=== PATIENT | female | born 1975 | race Caucasian/White ===

== ENCOUNTER 2017-04-16 13:08 | Emergency (ER) | payer OTHER ==
[2017-04-16 14:28] LABS: BLOOD UREA NITROGEN 20 mg/dL (7-17); CALCIUM 10.1 mg/dL (8.4-10.2); CHLORIDE 103 mmol/L (98-107); EST GLOMERULAR FILTRATION RATE > 60 mL/min; GLUCOSE 158 mg/dL (70-100); POTASSIUM 3.1 mmol/L (3.5-5.1); SODIUM 139 mmol/L (137-145)
[2017-04-16 14:29] LABS: BASOPHIL# 0.4 X 10^3uL (0.0-0.1); BASOPHILS 4.4 % (0.0-2.0); EOSINOPHILS 0.8 % (0.0-6.0); EOSINOPHILS# 0.1 X 10^3uL (0.0-0.4); HEMATOCRIT 41.1 % (36.0-48.0); HEMOGLOBIN 14.4 g/dL (12.0-16.0); LYMPHOCYTES 26.4 % (20.0-40.0); LYMPHOCYTES# 2.3 X 10^3uL (0.8-3.8); MEAN CELL VOLUME 89.8 fL (80.0-100.0); MEAN CORPUS. HGB CONCENTRATION 35.1 g/dL (32.0-36.0); MEAN CORPUSCULAR HEMOGLOBIN 31.5 pg (29.0-35.0); MEAN PLATELET VOLUME 8.4 fL (7.4-10.4); MONOCYTES 6.1 % (2.0-10.0); MONOCYTES# 0.5 X 10^3uL (0.2-1.0); NEUTROPHILS 62.3 % (54.0-75.0); NEUTROPHILS# 5.4 X 10^3uL (2.6-6.7); PLATELET COUNT 157 X 10^3uL (130-440); RED BLOOD COUNT 4.58 X 10^6uL (4.20-6.10); RED CELL DISTRIBUTION WIDTH 12.1 % (11.5-14.5); WHITE BLOOD COUNT 8.8 X 10^3uL (3.9-10.7)
[2017-04-16 14:38] LABS: C-REACTIVE PROTEIN < 5.0 mg/L (<10.0); TROPONIN I < 0.012 ng/mL (0.00-0.034)
--- NOTE | 2017-04-16 14:49 | RADIOLOGY REPORT ---
A limited single portable view of the chest demonstrates the heart, vessels and lungs to be unremarkable. IMPRESSION: Unremarkable limited single portable view of the chest. MTDD
--- NOTE | 2017-04-16 15:53 | MRI REPORT ---
HISTORY: Left-sided weakness. COMPARISON: None. TECHNIQUE: Multiplanar multi sequential imaging of the cervical spine obtained before and following the intrave nous administration of intravenous gadolinium. 15cc Magnevist contrast. FINDINGS: Visualized portions of the posterior cranial fossa appear unremarkable. There is no evidence of cereb ellar tonsillar ectopia. Cervical cord demonstrates no syrinx or cord edema. There is no contrast-enh ancing mass bone marrow signal is maintained. Anterior posterior longitudinal ligaments are intact. T here is no paravertebral soft tissue swelling.. There is no pathologic epidural fluid collection or e nhancement. Axial images demonstrate the following: C2-C3: No spinal stenosis or foraminal impingement. C3-C4: No spinal stenosis or foraminal impingement. C4-C5: No spinal stenosis or foraminal impingement. C5-C6: There is decreased disc height and hydration. There is a broad-based, subligamentous 3 mm righ t paracentral disc bulge and posterior osteophyte. As produces mild to moderate narrowing of the righ t lateral recess and neural foramina. Central canal is adequately maintained. The left lateral recess is maintained. C6-C7: No spinal stenosis or foraminal impingement. C7-T1: No spinal stenosis or foraminal impingement. IMPRESSION: 1. There is a 3 mm right paracentral disc bulge with posterior osteophyte formation at C5-C6 which produces mild to moderate narrowing of the right lateral recess and right neural foramina. No spinal stenosis. Results were communicated to BARI FRANCOIS MD at 04/16/2017 3:50 PM. Final Electronic Signature: This report was electronically signed by Micah Stovall MD on 04/16/2017 3:5 1 PM. [facility] /
--- NOTE | 2017-04-16 16:03 | MRI REPORT ---
HISTORY: Left-sided weakness. Dizziness. Spinal cord ischemia. COMPARISON: None. TECHNIQUE: Multiplanar multi sequential imaging of the brain obtained without and with IV gadolinium. 15 cc Magn evist FINDINGS: BRAIN: The midline structures are normal. No atrophy. The brain parenchyma is normal in signal intens ity. There is an ill-defined region of high diffusion signal with probable ADC signal in the right ce ntrum semiovale. No hemorrhage. No hydrocephalus. No mass effect or midline shift. The major intracra nial flow-voids are patent. BONES AND EXTRACRANIAL SOFT TISSUES: The orbits are unremarkable. The paranasal sinuses and mastoid a ir cells are clear. No gross bone lesion is identified. IMPRESSION: 1. Findings suspicious for recent infarction in the right centrum semiovale. Imaging characteristics suggest age. At least 6 hours less than 7 days. 2. No associated hemorrhage. Findings called at 4:00 PM. Gardenia Roberto MD Neuroradiologist Final Electronic Signature: This report was electronically signed by Rhett Roberto MD on 04/16/2017 4:00 PM. leny /
--- NOTE | 2017-04-16 16:52 | ER NURSING DOCUMENTATION ---
Nurse's Notes [facility] Name:Venessa Barnhart Age:41 yrs Sex:Female :1975 Arrival Date:04/16/2017 Time:13:08 BedTrauma-A Private MD:Emily Garcia Diagnosis:CVA (Stroke) Thrombotic, with Cerebral Infarction Presentation: 04/16 13:10 Acuity: LELAND 2 rh 13:16 Presenting complaint: Patient states: weakness and heaviness on her left arm and leg. sc1 Stated she woke up with discomfort across her post shoulder area and the left sided weakness. Went to the chiropractor and felt "better" but the left sided weakness has returned. Transition of care: Home. Time Last Known Well for patient was this morning. 13:16 Method Of Arrival: Private Vehicle sc1 13:20 No acute neurological deficit is noted. Triage Assessment: 13:41 The onset of the patients symptoms was more than six hours ago. General: Appears in no rh apparent distress, Behavior is cooperative. Pain: Denies pain. EENT: Oral mucosa is dry. Neuro: Level of Consciousness is awake, alert, obeys commands, Oriented to person, place, time, event, Small Brake Form Operator are weak on left Moves all extremities. Gait is steady, Speech is normal, Facial symmetry appears normal, Pupils are PERRLA, Reports weakness in left arm. Cardiovascular: Capillary refill < 3 seconds Chest pain is denied. Respiratory: Airway is patent Respiratory effort is even, unlabored, Respiratory pattern is regular, symmetrical. GI: Denies nausea. : No deficits noted. Derm: Skin is intact, is healthy with good turgor, Skin is pink, warm & dry. Musculoskeletal: Circulation, motion, and sensation intact Range of motion intact in all extremities. Historical: - Allergies: Codeine; - Home Meds: 1. None - PMHx: PITUITARY ADENOMA ; - PSHx: None; - Tetanus: < 10 years. - Ebola Screening: : Patient negative for fever greater than or equal to 101.5 degrees Fahrenheit, and additional compatible Ebola Virus Disease symptoms. - Family history: Maternal Grandmother has/had cerebrovascular accident, Paternal Grandfather has/had cerebrovascular accident. - Immunization history: Flu Vaccine < 1 year. - Social history: Smoking status: Patient states was never smoker of tobacco. Screenin:43 Infectious Disease Risk None. Abuse screen: Denies threats or abuse. Denies injuries rh from another. Nutritional screening: No deficits noted. Assessment: 13:43 See Triage Assessment done by same RN. rh Vital Signs: 13:20 BP 140 / 96; Pulse 87; Resp 18; Temp 98.6(O); Pulse Ox 96% on R/A; Weight 58.97 kg; rh Height 5 ft. 5 in. (165.10 cm); Pain 0/10; 15:50 BP 170 / 72; Pulse 66; Resp 18; Pulse Ox 96% on R/A; rh 16:50 BP 128 / 82; Pulse 65; Resp 16; Pulse Ox 97% on R/A; Pain 0/10; rh 13:20 Body Mass Index 21.63 (58.97 kg, 165.10 cm) rh NIH Stroke Scale Scores: 13:10 NIHSS Score: 0 rh 16:29 NIHSS Score: 0 rh ED Course: 13:10 Patient arrived in ED. ama 13:10 Emily Garcia MD is Private Physician. ama 13:10 Triage completed. rh 13:15 campus monitor on. Pulse ox on. NIBP on. Verbal reassurance given. Warm blanket given. rh Pillow given. 13:16 Desiree Nixon, RN is Primary Nurse. sc1 13:18 Neal Liriano MD is Attending Physician. be 13:18 Missed attempts: 20 gauge X 1 in left antecubital area, Bleeding controlled, band aid rh applied, catheter tip intact. 13:20 Notified ED Physician of patient's arrival and chief complaint. Dr. Liriano. rh 13:27 EKG done. (by ED staff). Reviewed by Neal Liriano MD. rh 13:43 Valuables Remains with patient Patient has correct armband on for positive rh identification. Placed in gown. Bed in low position. Call light in reach. Side rails up X 1. 14:05 Port Xray Completed. ms 14:26 Patient moved to MRI. ms 16:23 EKG attached sc1 Administered Medications: 14:05 Drug: NS 0.9% 1000 ml; Route: IV; Rate: bolus; Site: right antecubital; rh 15:00 Follow up: IV Status: Completed infusion; IV Intake: 1000ml rh 16:28 Drug: Aspirin 81 mg, 4 tabs, total of 324 mg - Aspirin 81 mg; Route: PO; rh 16:46 Follow up: Response: No adverse reaction rh 16:46 Drug: Zofran 8 mg; Route: IVP; Infused Over: 2 mins; Site: right antecubital; rh 16:48 Follow up: Response: No adverse reaction rh Point of Care Testing: Blood Glucose: 13:20 Blood Glucose: 87 mg/dL; rh Ranges: Intake: 15:00 IV: 1000ml; Total: 1000ml. rh Outcome: 16:29 ER care complete, transfer ordered by . be 16:48 Transferred: Patient will be transferred to: [facility]. Facility rh Acceptance Time: April 16, 2017 at 16:00 Patient's face sheet was faxed to accepting facility. Face Sheet included patient's name, address, age, gender, contact information and insurance information. Patient will be transported by: [facility] ground. Report called to: [facility] ICU CHARGE NURSE Nurse and Physician Charting and Notes were sent to Accepting Facility. All tests and/or procedures with results, if applicable, were sent to accepting facility. 16:48 Condition: stable 16:48 Instructed on need for transfer 16:51 Patient left the ED. rh NIH Stroke Scale - NIH Stroke Score Date: 04/16/2017 Time: 13:10 Total Score = 0 1a. Level of Consciousness (LOC) - 0(Alert) 1b. Level of Consciousness (LOC) (Year & Age) - 0(Both) 1c. LOC Commands (Open & Closes Eyes/Floor Associate) - 0(Both) 2. Best Gaze (Lateral Gaze Paresis) - 0(Normal) 3. Visual Field Loss - 0(No visual loss) 4. Facial Palsy - 0(Normal) 5a. Left Arm: Motor (10-second hold) - 0(No drift) 5b. Right Arm: Motor (10-second hold) - 0(No drift) 6a. Left Leg: Motor (5-second hold ? always test supine) - 0(No drift) 6b. Right Leg: Motor (5-second hold ? always test supine) - 0(No drift) 7. Limb Ataxia (finger/nose & heel/weller ? test with eyes open) - 0(Absent) 8. Sensory Loss (pinprick arms/legs/face) - 0(Normal) 9. Best Language: Aphasia (description/naming/reading) - 0(No aphasia) 10. Dysarthria (speech clarity ? read or repeat words) - 0(Normal) 11. Extinction and Inattention (visual/tactile/auditory/spatial/personal) - 0(No abnormality) Initials: NIH Stroke Scale - NIH Stroke Score Date: 04/16/2017 Time: 16:29 Total Score = 0 1a. Level of Consciousness (LOC) - 0(Alert) 1b. Level of Consciousness (LOC) (Year & Age) - 0(Both) 1c. LOC Commands (Open & Closes Eyes/Floor Associate) - 0(Both) 2. Best Gaze (Lateral Gaze Paresis) - 0(Normal) 3. Visual Field Loss - 0(No visual loss) 4. Facial Palsy - 0(Normal) 5a. Left Arm: Motor (10-second hold) - 0(No drift) 5b. Right Arm: Motor (10-second hold) - 0(No drift) 6a. Left Leg: Motor (5-second hold ? always test supine) - 0(No drift) 6b. Right Leg: Motor (5-second hold ? always test supine) - 0(No drift) 7. Limb Ataxia (finger/nose & heel/weller ? test with eyes open) - 0(Absent) 8. Sensory Loss (pinprick arms/legs/face) - 0(Normal) 9. Best Language: Aphasia (description/naming/reading) - 0(No aphasia) 10. Dysarthria (speech clarity ? read or repeat words) - 0(Normal) 11. Extinction and Inattention (visual/tactile/auditory/spatial/personal) - 0(No abnormality) Initials: Signatures: Desiree Nixon, RN RN sc1 Neal Liriano MD MD be Strickland, Mary ms Jerome Valente, Johana Hernandez
--- NOTE | 2017-04-16 16:52 | ER PHYSICIAN DOCUMENTATION ---
Physician Documentation [facility] Name:Venessa Barnhart Age:41 yrs Sex:Female :1975 Arrival Date:04/16/2017 Time:13:08 BedTrauma-A Private MD:Emily Garcia ED, Brian Disposition: 04/16/17 16:29 Transfer ordered to [facility]. Diagnosis is CVA (Stroke) Thrombotic, with Cerebral Infarction. - Reason for transfer: Specialty. - Accepting physician is Dr. Sanders, [facility]. - Condition is Serious. - Problem is new. - Symptoms have improved. COBRA Form completed? Yes Transfer - Mode of Transportation Ambulance HPI: 04/16 16:19 This 41 yrs old Female presents to ER via Private Vehicle with complaints of be Weakness - LEFT SIDED. 16:19 The patient presents to the emergency department with weakness of the left upper be extremity, that is mild, left lower extremity, that is mild. Onset: The symptom(s)/episode began/occurred today, 06:30. Context: occurred while the patient was at rest. Associated signs and symptoms: Pertinent positives: weakness. Severity of symptoms: At their worst the symptoms were mild. Current symptoms: Currently, the patient is not experiencing any symptoms, the patient feels back to baseline. This patient does not have any risk factors related to a stroke or transient ischemic attack. Historical: - Allergies: Codeine; - Home Meds: 1. None - PMHx: PITUITARY ADENOMA ; - PSHx: None; - Tetanus: < 10 years. - Ebola Screening: : Patient negative for fever greater than or equal to 101.5 degrees Fahrenheit, and additional compatible Ebola Virus Disease symptoms. - Family history: Maternal Grandmother has/had cerebrovascular accident, Paternal Grandfather has/had cerebrovascular accident. - Immunization history: Flu Vaccine < 1 year. - Social history: Smoking status: Patient states was never smoker of tobacco. ROS: 16:22 Neck: Positive for pain at rest. be 16:22 Neuro: Positive for weakness, of the left arm and left leg. 16:22 All other systems are negative. Exam: 16:22 Constitutional: This is a well developed, well nourished patient who is awake, alert, be and in no acute distress. Head/Face: Normocephalic, atraumatic. Neck: Trachea midline, no thyromegaly or masses palpated, and no cervical lymphadenopathy. Supple, full range of motion without nuchal rigidity, or vertebral point tenderness. No Meningismus. Chest/axilla: Normal chest wall appearance and motion. Nontender with no deformity. No lesions are appreciated. Respiratory: Lungs have equal breath sounds bilaterally, clear to auscultation and percussion. No rales, rhonchi or wheezes noted. No increased work of breathing, no retractions or nasal flaring. Abdomen/GI: Soft, non-tender, with normal bowel sounds. No distension or tympany. No guarding or rebound. No evidence of tenderness throughout. Back: No spinal tenderness. No costovertebral tenderness. Full range of motion. 16:22 Skin: Warm, dry with normal turgor. Normal color with no rashes, no lesions, and no be evidence of cellulitis. Multiple tatoos noted 16:22 Eyes: Pupils: equal, round, and reactive to light and accomodation. 16:22 Cardiovascular: Rate: normal, Rhythm: regular. 16:22 Neuro: Motor: no acute changes, Sensation: no acute changes, Gait: not tested. NIH stroke scale 0 on arrival. Vital Signs: 13:20 BP 140 / 96; Pulse 87; Resp 18; Temp 98.6(O); Pulse Ox 96% on R/A; Weight 58.97 kg; rh Height 5 ft. 5 in. (165.10 cm); Pain 0/10; 15:50 BP 170 / 72; Pulse 66; Resp 18; Pulse Ox 96% on R/A; rh 16:50 BP 128 / 82; Pulse 65; Resp 16; Pulse Ox 97% on R/A; Pain 0/10; rh 13:20 Body Mass Index 21.63 (58.97 kg, 165.10 cm) rh NIH Stroke Scale Scores: 13:10 NIHSS Score: 0 rh 16:29 NIHSS Score: 0 rh MDM: 13:18 Patient medically screened. be 13:45 ECG:. be 16:23 EKG attached sc1 16:25 The patient was last known to be well at April 16, 2017 at 06:30. Thrombolytics: No be thrombolytic given over 6 hours. Data reviewed: vital signs, nurses notes, lab test result(s), EKG, radiologic studies, MRI. Special discussion: Based on the history and exam findings, there is no indication for further emergent testing or inpatient evaluation. I discussed with the patient/guardian the need to see the neurologist for further evaluation of the symptoms. 16:26 Data reviewed: and as a result, I will *Transfer Patient ASA 324 mg chewed. Special be discussion: Based on the history and exam findings, there is no indication for further emergent testing or inpatient evaluation. Discussed with Dr. Sanders, Neurologist at [facility]. Agrees to accept transfer, ASA 324 mg chewed given.. 04/16 14:23 Order name: LACTATE; Complete Time: 07:22 EDMS 04/17 07:21 Interpretation: Normal. be 04/16 14:31 Order name: DDIMER; Complete Time: 07:22 EDMS 04/17 07:21 Interpretation: Abnormal. be 04/16 14:32 Order name: CBC AUTO DIF, MDIF/RMOR IF IND; Complete Time: 07:22 EDMS 04/17 07:21 Interpretation: Normal. be 04/16 14:39 Order name: BASIC METABOLIC PANEL; Complete Time: 07:22 EDMS 04/17 07:22 Interpretation: hypokalemia. be 04/16 14:39 Order name: MAGNESIUM; Complete Time: 07:22 EDMS 04/17 07:22 Interpretation: Normal. be 04/16 14:39 Order name: C-REACTIVE PROTEIN; Complete Time: 07:22 EDMS 04/17 07:22 Interpretation: Normal. be 04/16 14:39 Order name: TROPONIN I; Complete Time: 07:22 EDMS 04/17 07:22 Interpretation: Normal. be 04/16 15:11 Order name: CHEST; SINGLE VIEW [id number]; Complete Time: 07:22 EDMS 04/16 15:56 Order name: CERVICAL SPINE W/WO [id number]; Complete Time: 07:22 EDMS 04/16 16:05 Order name: BRAIN W/WO CONTRAST [id number]; Complete Time: 07:22 EDMS 04/16 13:26 Order name: 12-lead EKG; Complete Time: 13:33 be 04/16 13:26 Order name: Iv Saline Lock; Complete Time: 14:04 be 04/16 13:26 Order name: Place Patient On Monitor; Complete Time: 13:33 be 04/16 13:26 Order name: Pulse Ox Continuous; Complete Time: 13:33 be 04/16 13:26 Order name: Oxygen; Complete Time: :33 be EC:45 Rate is 88 beats/min. Rhythm is regular, Sinus arrythmia with No ectopy. QRS [place] is be Normal. ND interval is normal. QRS interval is normal. QT interval is normal. No Q waves. T waves are Normal. No ST changes noted. Clinical impression: Normal ECG. Interpreted by me. Dispensed Medications: 14:05 Drug: NS 0.9% 1000 ml; Route: IV; Rate: bolus; Site: right antecubital; rh 15:00 Follow up: IV Status: Completed infusion; IV Intake: 1000ml rh 16:28 Drug: Aspirin 81 mg, 4 tabs, total of 324 mg - Aspirin 81 mg; Route: PO; rh 16:46 Follow up: Response: No adverse reaction rh 16:46 Drug: Zofran 8 mg; Route: IVP; Infused Over: 2 mins; Site: right antecubital; rh 16:48 Follow up: Response: No adverse reaction Point of Care Testing: Blood Glucose: 13:20 Blood Glucose: 87 mg/dL; rh Ranges: Critical Glucose Levels:Adult <50 mg/dl or >400 mg/dl <40 mg/dl or >180 mg/dl NIH Stroke Scale - NIH Stroke Score Date: 04/16/2017 Time: 13:10 Total Score = 0 1a. Level of Consciousness (LOC) - 0(Alert) 1b. Level of Consciousness (LOC) (Year & Age) - 0(Both) 1c. LOC Commands (Open & Closes Eyes/[employer]) - 0(Both) 2. Best Gaze (Lateral Gaze Paresis) - 0(Normal) 3. Visual Field Loss - 0(No visual loss) 4. Facial Palsy - 0(Normal) 5a. Left Arm: Motor (10-second hold) - 0(No drift) 5b. Right Arm: Motor (10-second hold) - 0(No drift) 6a. Left Leg: Motor (5-second hold ? always test supine) - 0(No drift) 6b. Right Leg: Motor (5-second hold ? always test supine) - 0(No drift) 7. Limb Ataxia (finger/nose & heel/weller ? test with eyes open) - 0(Absent) 8. Sensory Loss (pinprick arms/legs/face) - 0(Normal) 9. Best Language: Aphasia (description/naming/reading) - 0(No aphasia) 10. Dysarthria (speech clarity ? read or repeat words) - 0(Normal) 11. Extinction and Inattention (visual/tactile/auditory/spatial/personal) - 0(No abnormality) Initials: NIH Stroke Scale - NIH Stroke Score Date: 04/16/2017 Time: 16:29 Total Score = 0 1a. Level of Consciousness (LOC) - 0(Alert) 1b. Level of Consciousness (LOC) (Year & Age) - 0(Both) 1c. LOC Commands (Open & Closes Eyes/[employer]) - 0(Both) 2. Best Gaze (Lateral Gaze Paresis) - 0(Normal) 3. Visual Field Loss - 0(No visual loss) 4. Facial Palsy - 0(Normal) 5a. Left Arm: Motor (10-second hold) - 0(No drift) 5b. Right Arm: Motor (10-second hold) - 0(No drift) 6a. Left Leg: Motor (5-second hold ? always test supine) - 0(No drift) 6b. Right Leg: Motor (5-second hold ? always test supine) - 0(No drift) 7. Limb Ataxia (finger/nose & heel/weller ? test with eyes open) - 0(Absent) 8. Sensory Loss (pinprick arms/legs/face) - 0(Normal) 9. Best Language: Aphasia (description/naming/reading) - 0(No aphasia) 10. Dysarthria (speech clarity ? read or repeat words) - 0(Normal) 11. Extinction and Inattention (visual/tactile/auditory/spatial/personal) - 0(No abnormality) Initials: Signatures: Desiree Nixon, RN RN sc1 Neal Liriano MD MD be Hofsess, Rachel
[2017-04-16] MEDS ORDERED: ONDANSETRON HCL 4 MG/2 ML VIAL ONE (17:00)
== END 2017-04-16 16:52 | disposition short-term general hospital (02) ==
LOC: ER 13:08
DX: I63.30 Cerebral infarction due to thrombosis of unspecified cerebral artery (principal); R29.700 NIHSS score 0; R79.1 Abnormal coagulation profile; E87.6 Hypokalemia; Z82.3 Family history of stroke; E86.0 Dehydration; Z74.3 Need for continuous supervision
CPT/HCPCS: 70553; 71010; 72156; 80048; 83605; 83735; 84484; 85025; 85379; 86140; 93005; 96361; 96374; 99285; A0425; A0427; J2405

== ENCOUNTER 2017-05-01 09:01 | Day surgery (SDC) | payer OTHER ==
[2017-05-01] MEDS ORDERED: LIDOCAINE HCL 2% 20 ML VIAL ONE (09:50)
[2017-05-01] MEDS ORDERED: FENTANYL 100 MCG/2 ML VIAL ONE (09:51)
--- NOTE | 2017-05-08 13:17 | HISTORY & PHYSICAL ---
History of Present Illness (Emily Garcia MD; 04/23/2017 12:56 PM) The patient is a 41 year old female who presents to the practice today for a transition into care. The patient is transitioning into care from a hospital. Patient was admitted with TIA symptoms of left sided weakness, both upper and lower extremeties, and found to have a patent foramen ovale, fenestrated, noted on bubble study transthoracic echo. She was taking oral contraceptives for regulation of her abnormal menstrual cycle, which have been discontinued. She is still feeling slightly weak on the left side, and there was a re-read of an MRI of April 16, which showed a very faint hyperintense area in the right frontoparietal region which was very small, and there is thus a diagnosis of embolic stroke. She is taking an 81mg aspirin, and hypercoagulation laboratory studies are still pending. Patient has overall resumed her normal activities, which include a fairly vigorous exercise program. During her admission to [facility], MRA and MR venography of the brain were undertaken, as well as CTA of the carotids and vertebral arteries, all normally. Additionally, the patient had negative venous dopplers of the lower extremities, and a negative CT venography of the pelvic veins. No potential source of emboli was found. The patient has no known history of arrhythmia of any kind. Other events during her admission included one episode of severe hypotension, with a systolic blood pressure in the 70s, attributed to dehydration, which resolved with IVF resuscitation. Allergies (Brianda Rodriguez RN; 04/23/2017 9:48 AM) Dust Codeine Sulfate *ANALGESICS - OPIOID* Nausea. Animal Dander Family History (Brianda Rodriguez RN; 04/23/2017 9:48 AM) Father 65, lives in [place]. History of heroin abuse, now clean, CAD with [place] x [address] Does not care for his health. Mother Diabetes mellitus, Type I. Diabetes mellitus, Type I age 18, from Drug Overdose in her 40s. Social History (Brianda Rodriguez RN; 04/23/2017 10:02 AM) Alcohol Use Drinks Socially. two/week No Drug Use No marijuana Tobacco use Remotely quit tobacco use. smoke 16-26 ( 10pack years) Medication History (Emily Garcia MD; 04/23/2017 10:10 AM) Juice Plus Fibre (6 capsules Oral daily) Active. Cabergoline (0.5MG Tablet, 2 (two) Oral two times weekly, Taken starting 2016) Active. (Four times a week.) Aspirin EC (81MG Tablet DR, 1 Oral daily) Active. Medications Reconciled Review of Systems (Emily Garcia MD; 04/23/2017 12:58 PM) General Present- Fatigue. Neurological Present- Weakness In Extremities (mild). Not Present- Headaches. Vitals (Yari Oviedo; 04/23/2017 9:59 AM) 04/23/2017 9:57 AM Weight: 132.1 lb Height: 65in Body Surface Area: 1.66 m Body Mass Index: 21.98 kg/m Temp.: 98.5F(Temporal) Pulse: 80 (Regular) Resp.: 16 (Unlabored) P.OX: 92% (Room air) BP: 109/80 (Sitting, Left Arm, Standard) Physical Exam (Emily Garcia MD; 04/23/2017 1:00 PM) General Mental Status-Alert. General Appearance-Cooperative, Not in acute distress. Build & Nutrition-Well nourished and Well developed. Head and Neck Head-normocephalic, atraumatic with no lesions or palpable masses. Neck Global Assessment - full range of motion. Carotid Arteries - Bilateral - No Carotid Bruits. Trachea-midline. Thyroid Gland Characteristics - smooth, normal size and consistency and no palpable nodules. Chest and Lung Exam - Did not examine. Cardiovascular Inspection Jugular vein - Bilateral - No Distention. Palpation/Percussion Point of Maximal Impulse - Location - 2nd Left Intercostal Space Midclavicular Line. Auscultation Rhythm - Regular. Heart Sounds - S1 WNL and S2 WNL. Murmurs & Other Heart Sounds - Auscultation of the heart reveals - No Pericardial Friction Rubs. Murmur 1 - Location - Pulmonic Area. Timing - Late systolic. Grade - I/. Murmurs & Other Heart Sounds - Late Systolic Click - Pulmonic Area. Peripheral Vascular Upper Extremity Inspection - Bilateral - Not Acrocyanotic. Palpation - Temperature - Bilateral - Cool. Lower Extremity Palpation - Dorsalis pedis pulse - Bilateral - 2+. Tibialis posterior pulse - Bilateral - 2+. Edema - Bilateral - No edema. Neurologic Neurologic evaluation reveals -CN 2-12 intact. Mental Status Thought content/perception - Normal. Cognitive function - Normal. Cranial Nerves Eye Movements - Gaze - Bilateral - Normal. Nystagmus - Bilateral - None. Sensory-Normal. Motor Tone - Normal. Strength - 5/5 normal muscle strength - All Muscles. Reflexes (Dermatomes) 2/2 Normal - Left Achilles (L5-S2), Left Knee (L2-4), Left Tricep (C7-8), Left Brachioradialis (C5-6), Right Achilles (L5-S2), Right Knee (L2-4), Right Tricep (C7-8) and Right Brachioradialis (C5-6). Plantar Reflexes (L4-S2) - Bilateral-Flexion. Coordination-Normal. Gait-Normal. Assessment & Plan (Emily Garcia MD; 04/23/2017 1:27 PM) Patent foramen ovale with right to left shunt (Q21.1) Impression: Patient is to have a M[facility] for further assessment on May 01; we discussed the literature regarding the subject of intervention. It is my opinion that the patient should consider percutaneous repair, given her young age and the actual small stroke that was experienced. She should continue her aspirin as directed, and I asked her to avoid upper body maneuvers that raise intrathoracic pressure, such as using weights above shoulder level, explaining that she risks increasing the intracardiac shunting. Stroke, acute, embolic (I63.9) Impression: There is a risk that the patient may have a hypercoaguable state; she has a history of early miscarriage, for example, and infertility problems. However, previous testing for antiphospholipid syndrome in 2014 was negative. Her situation is further complicated by her history of pituitary microadenoma with hyperprolactinemia. Her use of oral contraception was to assist in regulation of her menstrual cycle; she also remarks it helped her cystic acne. She plans to meet with her Unemployment Specialist to discuss her options further. We will await the outcome of recent testing at [facility]. Health education/counseling (Z71.89) Current Plans Pt Education - Physician Instructions:: discussed with patient and provided information. Medication review and counseling (Z71.89) Current Plans HOME MEDICATION RECONCILIATION BY REGISTERED NURSE ([id number]) Signed by Emily Garcia MD (04/23/2017 1:28 PM) [facility]
== END 2017-05-01 11:25 | disposition home or self-care (01) ==
LOC: SDS 09:01 → GI 09:01
PROVIDERS: ATTEND Internal Medicine Cardiovascular Disease
DX: Q21.1 Atrial septal defect (principal); G45.9 Transient cerebral ischemic attack, unspecified; R79.1 Abnormal coagulation profile; E87.6 Hypokalemia
CPT/HCPCS: 84703; 93312; 93321; 93325; J3010